=== PATIENT | male | born 1935 | race Caucasian/White ===

== ENCOUNTER → 2016-02-15 | Outpatient (CLI) | payer MEDICARE ==
--- NOTE | 2016-02-15 10:16 | Diagnostic Imaging Report ---
PROCEDURE: CT chest without contrast. TECHNIQUE: Multiple contiguous axial images were obtained through the chest without the use of intravenous contrast. INDICATION: Followup pulmonary nodule. COMPARISON: Comparison PET/CT from 11/21/2015. FINDINGS: There is a left lower lobe pulmonary nodule measuring 1.5 cm with lobulated contour that demonstrates no significant change from the prior exam. It is located in the superior segment of the left lower lobe at the level of the hilum. There is background emphysema that is upper lobe predominant. Bibasilar minimal atelectasis and element of scarring is seen. There is no mediastinal mass or lymphadenopathy. No hilar lymphadenopathy. The heart size is normal. The thoracic aorta is normal in caliber. The osseous structures demonstrate degenerative changes and right convexity scoliosis in the lower thoracic spine. There is diffuse hepatic steatosis. A tiny hiatal hernia is present. IMPRESSION: 1.5 cm left lower lobe pulmonary nodule is stable. It demonstrated no significant hypermetabolic activity in favor of benign etiology. Another followup in four months is suggested to ensure further stability. Dictated by: Dictated on workstation # [id number]
== END ==
LOC: RAD 08:53
PROVIDERS: ATTEND Internal Medicine Critical Care Medicine
DX: R91.8 Other nonspecific abnormal finding of lung field (principal); E66.9 Obesity, unspecified; J43.9 Emphysema, unspecified
CPT/HCPCS: 71250

== ENCOUNTER → 2016-11-26 | Outpatient (CLI) | payer MEDICARE ==
--- NOTE | 2016-11-26 12:29 | Diagnostic Imaging Report ---
PROCEDURE: CT chest without contrast. TECHNIQUE: Multiple contiguous axial images were obtained through the chest without the use of intravenous contrast. INDICATION: Followup lung nodule. COMPARISON: 02/15/2016 CT and 11/21/2015 PET/CT. FINDINGS: There is a stable lobulated pulmonary nodule in the left lower lobe measuring 1.5 cm without significant change from 02/15/2016 or 11/21/2015 exams. Previously, this was shown to be not associated with significant hypermetabolism in favor of benign process such as hamartoma or noncalcified granuloma. There is no consolidation, mass or other nodules seen. Upper lobe predominant emphysema is noted. There are mild nonspecific fibrotic changes and minimal atelectasis noted in the lung bases. The thoracic aorta is normal in caliber. There is no mediastinal mass. The hilar vessels are not opacified with no obvious hilar mass or lymphadenopathy. No axillary lymphadenopathy is seen. The heart size is normal. No pericardial or pleural effusion. Prominent coronary artery calcifications are seen. There is a tiny hiatal hernia noted. The liver demonstrates mild diffuse hepatic steatosis. The osseous structures demonstrate degenerative changes. IMPRESSION: 1. Unchanged 1.5 cm lobulated noncalcified nodule in the left lung base, stable from 11/21/2015. Additional followup in 12 months is recommended to ensure longer-term stability. This is favored to be benign such as noncalcified granuloma or hamartoma. 2. Emphysema. 3. Tiny hiatal hernia. Dictated by: Dictated on workstation # [id number]
== END ==
LOC: RAD 10:55
PROVIDERS: ATTEND Internal Medicine Critical Care Medicine
DX: R91.8 Other nonspecific abnormal finding of lung field (principal); J43.9 Emphysema, unspecified; E66.9 Obesity, unspecified
CPT/HCPCS: 71250

== ENCOUNTER → 2017-11-27 | Outpatient (CLI) | payer MEDICARE ==
--- NOTE | 2017-11-27 11:26 | Diagnostic Imaging Report ---
PROCEDURE: CT chest without contrast. TECHNIQUE: Multiple contiguous axial images were obtained through the chest without the use of intravenous contrast. INDICATION: Followup lung nodules. Comparison is made with prior CT chest from 11/26/2016. No axillary lymphadenopathy is identified. Mediastinal and hilar evaluation is limited without intravenous contrast but no gross abnormality is seen. There are coronary arterial calcifications present. No pericardial or pleural fluid is identified. The circumscribed lobulated nodule in the left lower lobe previously seen is stable at 15 mm. This is stable dating back to PET CT from 11/21/2015. No new parenchymal mass is identified. The upper abdomen shows some stones in the gallbladder. IMPRESSION: 1. Stable left lower lobe pulmonary nodule. This now shows two years of stability, consistent with a benign etiology. 2. Cholelithiasis. Dictated by: Dictated on workstation # [id number]
== END ==
LOC: RAD 10:51
PROVIDERS: ATTEND Nurse Practitioner Family
DX: J43.9 Emphysema, unspecified (principal); R91.8 Other nonspecific abnormal finding of lung field
CPT/HCPCS: 71250